=== PATIENT | female | born 1960 | race Caucasian/White ===

== ENCOUNTER 2017-10-23 17:07 | Inpatient (IN) | payer OTHER ==
[2017-10-23] MEDS ORDERED: ASPIRIN 81 MG CHEWABLE TAB PO ONE (17:16)
[2017-10-23] MEDS ORDERED: NS 1,000 ML IV ONE (17:16)
--- NOTE | 2017-10-23 17:16 | EDPHY ---
H & P Stated Complaint: cp with exeercise 2 weeks saw pcp ekg/labs trop 0.035 HPI/ROS: HPI CHIEF COMPLAINT: Chest pain with exertion HISTORY OF PRESENT ILLNESS: This patient 57-year-old female, otherwise healthy she does have a history of asthma, hyperlipidemia, she presents emergency room with exertional chest pain. Patient states over the past 2-3 weeks every time she goes to exert herself she develops chest discomfort. Patient reports to me every time she exerts herself she gets a dull ache in the center of her chest nonradiating. She denies any pleuritic pain, denies recent illness, denies cough, denies fever, denies hemoptysis. Patient has no chest pain at rest. She reports takes approximately 10 min for the chest discomfort to go away after she exerts herself. Rest. Past Medical History: Hyperlipidemia, asthma Past Surgical History: Left knee surgery Social History: He denies drugs alcohol tobacco products. Family History: Noncontributory. ROS REVIEW OF SYSTEMS: A comprehensive 10 point review of systems is otherwise negative aside from elements mentioned in the history of present illness. Exam Constitutional appears well nontoxic no acute distress triage nursing summary reviewed, vital signs reviewed, awake/alert. Eyes normal conjunctivae and sclera, EOMI, PERRLA. HENT normal inspection, atraumatic, moist mucus membranes, no epistaxis, neck supple/ no meningismus, no raccoon eyes. Respiratory clear to auscultation bilaterally, normal breath sounds, no respiratory distress, no wheezing. Cardiovascular rate normal, regular rhythm, no murmur, no edema, distal pulses normal. Gastrointestinal soft, non-tender, no rebound, no guarding, normal bowel sounds, no distension, no pulsatile mass. Genitourinary no CVA tenderness. Musculoskeletal no midline vertebral tenderness, full range of motion, no calf swelling, no tenderness of extremities, no meningismus, good pulses, neurovascularly intact. Skin pink, warm, & dry, no rash, skin atraumatic. Neurologic awake, alert and oriented x 3, AAOx3, moves all 4 extremities equally, motor intact, sensory intact, CN II-XII intact, normal cerebellar, normal vision, normal speech. Psychiatric normal mood/affect. Heme/Lymph/Immune no lymphadenopathy. Differential diagnosis includes but is not limited to: ACS, atypical chest pain , pneumothorax, pneumonia, pulmonary embolism, aortic dissection, congestive heart failure, tumor, musculoskeletal pain, esophageal pain, GERD, peptic ulcer disease, pancreatitis Medical Decision Making: Plan for this patient IV establishment check basic blood work, EKG to rule out acute coronary syndrome, full-dose aspirin, full monitoring manager, and re-evaluate. Re-evaluation: EKG interpretation by me on record in [employer] system. Impression time of EKG 1726, sinus rhythm rate of 70, RVH present. Right bundle-branch block present. No ST elevation. No significant ST depression. 183: Patient has a positive troponin. At this time she has no chest pain. No chest pain at rest. Only gets chest discomfort when she exerts herself. Patient receive full-dose aspirin here. Additionally I have given the patient 1 milligram/kilogram of Lovenox. Additionally her EKG is not acutely ischemic. Patient does have a positive troponin. She will be admitted to the hospital. I will admit the patient to the hospitalist service. Additionally I will consult Cardiology. Source: Patient - Personal History Current Tetanus/Diphtheria Vaccine: Yes - Medical/Surgical History Hx Asthma: Yes Hx Chronic Respiratory Disease: No Hx Diabetes: No Hx Cardiac Disease: No Hx Renal Disease: No Hx Cirrhosis: No Hx Alcoholism: No Hx HIV/AIDS: No Hx Splenectomy or Spleen Trauma: No Other PMH: asthma knee surg - Social History Smoking Status: Never smoked Constitutional: Initial Vital Signs Temperature (C) 36.8 C 10/23/17 17:10 Heart Rate 81 10/23/17 17:10 Respiratory Rate 18 10/23/17 17:10 Blood Pressure 160/111 H 10/23/17 17:10 O2 Sat (%) 96 10/23/17 17:10 O2 Delivery Mode Room Air O2 (L/minute) 4 Allergies/Adverse Reactions: No Known Allergies Allergy (Unverified 10/23/17 17:09) Home Medications: Medication Instructions Recorded Budesonide/Formoterol 160/4.5 2 puffs IH DAILY 10/23/17 [Symbicort 160-4.5 Mcg Inh (*)] Calcium Carb W/Vit D [Calcium Carb 500 mg PO DAILY 10/23/17 W/Vit D 500/200 (*)] Estradiol 0.5 mg PO DAILY 10/23/17 Glucosamine Sulfate [Glucosamine 500 mg PO DAILY 10/23/17 Sulfate 500 MG (*)] Herbals/Supplements -Info Only 1 ea PO DAILY 10/23/17 Progesterone, Micronized 100 mg PO DAILY 10/23/17 [Progesterone] Aspirin EC [Aspirin EC 325 mg (*)] 325 mg PO DAILY #30 tab 10/25/17 Atorvastatin Calcium [Lipitor 40 40 mg PO DAILY #30 tab 10/25/17 mg (*)] Metoprolol Succinate Xr [Toprol Xl 25 mg PO DAILY #30 tab 10/25/17 25 mg (*)] Prasugrel HCl [Effient 10mg (*)] 10 mg PO DAILY #30 tab 10/25/17 Medical Decision Making - Data Points Laboratory Results: Laboratory Results 10/24/17 03:36 10/24/17 03:36 Medications Given: Discontinued Medications Hydrocodone Bitart/Acetaminophen ([place] 5/325) 1 - 2 tab PO Q4HRS PRN PRN Reason: Pain, Moderate Stop: 11/03/17 12:53 Last Admin: 10/24/17 14:07 Dose: 1 tab Aspirin (Aspirin) 324 mg PO EDNOW ONE Stop: 10/23/17 17:17 Last Admin: 10/23/17 17:30 Dose: 324 mg Aspirin Buffered (Aspirin Ec) 325 mg PO DAILY [facility] Stop: 04/23/18 08:59 Last Admin: 10/25/17 08:59 Dose: 325 mg Atorvastatin Calcium (Lipitor) 40 mg PO DAILY [facility] Stop: 04/22/18 18:29 Last Admin: 10/25/17 08:58 Dose: 40 mg Budesonide/Formoterol Fumarate (Symbicort 160-4.5 Mcg Inhaler) 2 puffs IH DAILY [facility] Stop: 04/22/18 08:59 Last Admin: 10/25/17 08:47 Dose: 2 puffs Calcium/Vitamin D (Calcium Carb W/Vit D) 500 mg PO DAILY [facility] Stop: 04/22/18 08:59 Last Admin: 10/25/17 08:59 Dose: 500 mg Diazepam (Valium) 5 mg PO ONCALL ONE Stop: 10/24/17 08:56 Last Admin: 10/24/17 10:28 Dose: 5 mg Diphenhydramine HCl (Benadryl) 25 mg PO ONCALL ONE Stop: 10/24/17 08:56 Last Admin: 10/24/17 10:27 Dose: 25 mg Enoxaparin Sodium (Lovenox) 70 mg SC EDNOW ONE Stop: 10/23/17 19:16 Last Admin: 10/23/17 19:17 Dose: 70 mg Estradiol (Estradiol) 0.5 mg PO DAILY TARI Stop: 04/22/18 08:59 Last Admin: 10/25/17 08:59 Dose: 0.5 mg Famotidine (Pepcid) 20 mg PO ONCALL ONE Stop: 10/24/17 08:56 Last Admin: 10/24/17 10:28 Dose: 20 mg Glucosamine Sulfate (Glucosamine Sulfate) 500 mg PO DAILY TARI Stop: 04/22/18 08:59 Last Admin: 10/25/17 08:59 Dose: 500 mg Sodium Chloride (Ns) 1,000 mls @ 0 mls/hr IV EDNOW ONE; Wide Open PRN Reason: Protocol Stop: 10/23/17 17:17 Last Admin: 10/23/17 17:30 Dose: 1,000 mls Sodium Chloride (Ns) 1,000 mls @ 50 mls/hr IV CONT TARI Stop: 04/21/18 19:44 Last Admin: 10/24/17 02:01 Dose: 1,000 mls Sodium Chloride (Ns) 1,000 mls @ 100 mls/hr IV CONT TAIR Stop: 10/24/17 22:59 Last Admin: 10/24/17 14:50 Dose: 1,000 mls Metoprolol Succinate (Toprol Xl) 25 mg PO DAILY [facility] Stop: 04/23/18 08:59 Last Admin: 10/25/17 09:40 Dose: 25 mg Ondansetron HCl (Zofran) 4 mg IVP Q4HRS PRN PRN Reason: Nausea/Vomiting, Can't Take PO Stop: 04/21/18 19:43 Last Admin: 10/24/17 22:51 Dose: 4 mg Prasugrel (Effient) 10 mg PO DAILY [facility] Stop: 04/23/18 08:59 Last Admin: 10/25/17 08:59 Dose: 10 mg Prasugrel (Effient) 60 mg PO ONCE ONE Stop: 10/24/17 12:55 Last Admin: 10/24/17 14:30 Dose: Not Given Pravastatin Sodium (Pravachol) 40 mg PO DAILY [facility] Stop: 04/22/18 08:59 Last Admin: 10/24/17 21:20 Dose: Not Given Progesterone (Prometrium) 100 mg PO DAILY TARI Stop: 04/22/18 08:59 Last Admin: 10/25/17 08:58 Dose: 100 mg Promethazine HCl (Phenergan) 25 mg IV ONCE ONE Stop: 10/24/17 14:46 Last Admin: 10/24/17 14:50 Dose: 25 mg Zolpidem Tartrate (Ambien) 5 - 10 mg PO HS PRN PRN Reason: Sleep/Insomnia, use 1st Stop: 04/21/18 19:43 Last Admin: 10/24/17 02:41 Dose: 5 mg Departure - Departure Disposition: [facility] Acute Clinical Impression: Elevated troponin Chest pain Qualifiers: Chest pain type: unspecified Qualified Code(s): R07.9 - Chest pain, unspecified Condition: Good
--- NOTE | 2017-10-23 17:28 | CPEKG ---
Heart Rate: 70 RR Interval: 857 P-R Interval: 152 QRSD Interval: 104 QT Interval: 412 QTC Interval: 445 P [place]: 66 QRS [place]: 101 T Wave [place]: 34 EKG Severity - BORDERLINE ECG - EKG Impression: SINUS RHYTHM EKG Impression: CONSIDER RIGHT VENTRICULAR HYPERTROPHY Electronically Signed By: Kenneth Estrada 23-Oct-2017 22:47:12
[2017-10-23 17:42] LABS: PLATELET COUNT 215 10^3/uL (150-400)
[2017-10-23 17:53] LABS: INR 1.02 (0.83-1.16); PROTIME(PATIENT) 13.6 SEC (12.0-15.0)
[2017-10-23 17:56] LABS: CREATINE KINASE 198 IU/L (0-156)
[2017-10-23] MEDS ORDERED: ENOXAPARIN 60 MG/0.6 ML SYR SC ONE ×2 (18:14→19:15)
[2017-10-23] MEDS ORDERED: ENOXAPARIN 80 MG/0.8 ML SYR SC ONE (19:15)
[2017-10-23] MEDS ORDERED: ACETAMINOPHEN 325 MG TAB PO PRN (19:44)
[2017-10-23] MEDS ORDERED: ONDANSETRON DISINTEGRATING 4 MG TAB PO PRN (19:44)
[2017-10-23] MEDS ORDERED: ZOLPIDEM TARTRATE 5 MG TAB PO PRN (19:44)
[2017-10-23] MEDS ORDERED: NS 1,000 ML IV SCH (19:45)
--- NOTE | 2017-10-23 23:39 | PDGENHP ---
History and Physical History and Physical: CC: Chest pain with exertion HISTORY: This patient presents to the emergency room today complaining of 2 weeks of new onset and increasing exertion related symptoms consisting of a pressure or weight sensation in the central anterior chest associated with dyspnea. Typical symptoms to bring this on my include walking her dog on a slight a pill, trying to get out of the house quickly in the morning to go to work, or exercising at modest level on an elliptical technology trainer. Today she had stopped 10 times while trying to walk her dog because of these anginal symptoms. The anginal symptoms will go away within 5-10 minutes of stopping to rest. There has been no palpitations and no syncope. She has no history of any symptoms like this in the past. There is no nausea. She has no previous history of heart disease thromboembolic disease vascular disease, does have a history of asthma but that is currently well controlled on Symbicort. She does have a history of hyperlipidemia with the last LDL measured at 150 and her father had myocardial infarction in his young 60s. She is not a smoker and not diabetic. 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 I have reviewed the list and ordered appropriate medicines. 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 IV site: looks normal LABORATORY DATA: She has 2 troponins so far today, 1 done during her hospital stay and 1 done in the outpatient clinic setting, and he is are both mildly elevated at 0.05 and 0.04 There is a mild elevation of anion gap within normal CO2 level on the chemistry RADIOLOGY STUDIES: Reviewed chest x-ray image myself which shows a normal chest x-ray 12 LEAD EKG: I reviewed her 12 lead EKG tracing which shows a sinus rhythm with borderline nonspecific interventricular conduction delay ASSESSMENT: -new onset unstable angina pectoralis in a patient with risk factors of hypercholesterolemia and family history of premature coronary disease -mildly elevated cardiac troponins raise suspicion further that this is a coronary syndrome -no signs of heart failure or arrhythmia at this time -question of possible metabolic acidosis with a mild elevation of anion gap but normal CO2 level on chemistry This is very highly likely be a coronary syndrome without other specific evidence for any different cause at this time PLANS: -observe over overnight on dental biller -she has been given aspirin and Lovenox tonight in the ER -will add some metoprolol now -continue daily aspirin -she is aware that I want her to notify us of any recurrent rest angina or dyspnea or other concerning symptoms -believe that coronary angiography is indicated here. Cardiology will see her in the morning and render their opinion will proceed from there -chronic aggressive preventive measures for coronary disease given her risk factors -echocardiogram to assess LV function -gentle hydration overnight and recheck chemistry for her anion gap I have reviewed the patient's case in detail with Dr. Kenneth Estrada I have reviewed the patient's past medical records as part of this assessment, including previous outpatient laboratory data and clinic records
[2017-10-24 04:37] LABS: INR 1.09 (0.83-1.16); PROTIME(PATIENT) 14.3 SEC (12.0-15.0)
[2017-10-24 04:54] LABS: PLATELET COUNT 176 10^3/uL (150-400)
[2017-10-24 04:56] LABS: CREATINE KINASE 147 IU/L (0-156)
--- NOTE | 2017-10-24 07:58 | CPEKG ---
Heart Rate: 76 RR Interval: 789 P-R Interval: 168 QRSD Interval: 132 QT Interval: 432 QTC Interval: 486 P [place]: 73 QRS [place]: 82 T Wave [place]: 58 EKG Severity - ABNORMAL ECG - EKG Impression: SINUS RHYTHM EKG Impression: RBBB AND LPFB Electronically Signed By: Junito Vasquez 25-Oct-2017 10:23:25
[2017-10-24] MEDS ORDERED: diphenhydrAMINE 25 MG CAP PO ONE (08:55)
[2017-10-24] MEDS ORDERED: TEMAZEPAM 15 MG CAP PO PRN (08:55)
[2017-10-24] MEDS ORDERED: DIAZEPAM 5 MG TAB PO ONE (08:55)
[2017-10-24] MEDS ORDERED: NITROGLYCERIN 0.4 MG BTL SL PRN (08:55)
[2017-10-24] MEDS ORDERED: FAMOTIDINE 20 MG TAB PO ONE (08:55)
[2017-10-24] MEDS ORDERED: ACETAMINOPHEN 325 MG TAB PO PRN (08:55)
[2017-10-24] MEDS ORDERED: PRAVASTATIN SODIUM 40 MG TAB PO SCH (09:00)
[2017-10-24] MEDS: BUDESONIDE/FORMOTEROL 160/4.5 60 PUFFS/MDI IH SCH (09:23)
--- NOTE | 2017-10-24 10:07 | PDCARCONS ---
Cardiology Consult Reason for Consult: New onset exertional angina. Chief Complaint: Exertional chest discomfort. Requesting Physician: Dr. Jason Huffman. History of Present Illness: Mrs. Tatum is a pleasant 57-year-old female who, at her baseline, is very active and has no known cardiovascular disease. Her cardiac risk factors include hyperlipidemia with an LDL cholesterol previously measured to be in the 150 range. There is a family history of cardiovascular disease however there is no family history of premature atherosclerosis. She and her live up in the [facility] area. Shortly after [place] she decided to take up an exercise program. She has been trying to use an elliptical field trainer regularly. She also likes to take her for a small dog for a walk which she usually does on a daily basis. For the 1st 2 weeks of this program she has done well however for the last 1 week she has felt poorly. She states that she has been experiencing symptoms of exertional chest discomfort described as a pressure sensation in the retrosternal region with physical activities. She specifically notes that these symptoms when she takes her dog for a walk. Generally within about 5 minutes of beginning to walk she will experience chest pressure. This is associated with dyspnea and requires that she stop and rest. Usually within 2-3 minutes her symptoms resolved. On a typical 30 minutes walk she will need to stop about 10 times to catch her breath and to alleviate the chest discomfort. She has not had any resting symptoms. She notes no orthopnea or PND and she has not had any significant edema. Because of these symptoms she went to see Dr. Rodriguez yesterday. She actually saw the nurse practitioner. She had an EKG which apparently was noted to be unremarkable. The patient was sent for blood work and apparently her troponin returned slightly elevated. As result she was advised to come to the emergency department. She has been admitted and has been stable since. She has been on heparin overnight and in sinus rhythm. She denies fever, chills and sweats. As stated above she has not had any resting symptoms. She notes no dyspepsia. She does have a history of reactive airway disease although has not been wheezy recently. She was hospitalized in late 2016 with a reactive airway disease exacerbation. History Information - Allergies/Home Medication List Allergies/Adverse Reactions: No Known Allergies Allergy (Unverified 10/23/17 17:09) Home Medications: Budesonide/Formoterol 160/4.5 [Symbicort 160-4.5 Mcg Inh (*)] 2 puffs IH DAILY 10/23/17 [Last Taken 10/23/17] Calcium Carb W/Vit D [Calcium Carb W/Vit D 500/200 (*)] 500 mg PO DAILY [Last Taken 10/23/17] Estradiol [Estradiol 0.5 MG (RX)] 0.5 mg PO DAILY 10/23/17 [Last Taken 10/23/17] Glucosamine Sulfate [Glucosamine Sulfate 500 MG (*)] 500 mg PO DAILY 10/23/17 [ Last Taken 10/23/17] Herbals/Supplements -Info Only 1 ea PO DAILY 10/23/17 [Last Taken 10/23/17] Pravastatin Sodium [Pravachol] 40 mg PO DAILY 10/23/17 [Last Taken 10/23/17] Progesterone, Micronized [Progesterone] 100 mg PO DAILY 10/23/17 [Last Taken ] I have personally reviewed and updated: family history, medical history, social history, surgical history Past Medical History: Reactive airway disease, hyperlipidemia, postmenopausal. - Surgical History Additional surgical history: Right knee arthroscopy June 2016 - Family History Additional family history: There is no family history for premature atherosclerosis. - Social History Smoking Status: Never smoked Alcohol Use: Rarely Drug Use: None Additional social history: She is . 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 She has always been healthy. She has 3 grown children. Physical Exam Physical Exam: Temp Pulse Resp BP Pulse Ox 36.8 C 70 12 126/65 H 95 10/24/17 07:17 10/24/17 07:17 10/24/17 07:17 10/24/17 07:17 10/24/17 07:17 O2 (L/minute) 2 Constitutional: no apparent distress Eyes: PERRL, anicteric sclera Ears, Nose, Mouth, Throat: moist mucous membranes Cardiovascular: regular rate and rhythym, no murmur, rub, or gallop, No systolic murmur, No diastolic murmur, No JVD Peripheral Pulses: 2+: carotid (R), carotid (L) Respiratory: no respiratory distress, no rales or rhonchi, clear to auscultation , No reduced air movement Gastrointestinal: normoactive bowel sounds, soft, non-tender abdomen, No no palpable masses Genitourinary: No no bladder fullness, No no bladder tenderness, No no renal bruits Skin: warm, normal color Musculoskeletal: full muscle strength, no muscle tenderness Neurologic: AAOx3 Psychiatric: interacting appropriately Lab and Imaging 10/24/17 03:36 10/24/17 03:36 WBC 5.96 10^3/uL (3.80-9.50) 10/24/17 03:36 RBC 4.16 10^6/uL (4.18-5.33) L 10/24/17 03:36 Hgb 12.3 g/dL (12.6-16.3) L 10/24/17 03:36 Hct 37.8 % (38.0-47.0) L 10/24/17 03:36 MCV 90.9 fL (81.5-99.8) 10/24/17 03:36 MCH 29.6 pg (27.9-34.1) 10/24/17 03:36 MCHC 32.5 g/dL (32.4-36.7) 10/24/17 03:36 RDW 12.7 % (11.5-15.2) 10/24/17 03:36 Plt Count 176 10^3/uL (150-400) 10/24/17 03:36 MPV 10.5 fL (8.7-11.7) 10/24/17 03:36 Neut % (Auto) 46.9 % (39.3-74.2) 10/24/17 03:36 Lymph % (Auto) 39.8 % (15.0-45.0) 10/24/17 03:36 [place] % (Auto) 8.9 % (4.5-13.0) 10/24/17 03:36 Eos % (Auto) 3.4 % (0.6-7.6) 10/24/17 03:36 Baso % (Auto) 0.8 % (0.3-1.7) 10/24/17 03:36 Nucleat RBC Rel Count 0.0 % (0.0-0.2) 10/24/17 03:36 Absolute Neuts (auto) 2.80 10^3/uL (1.70-6.50) 10/24/17 03:36 Absolute Lymphs (auto) 2.37 10^3/uL (1.00-3.00) 10/24/17 03:36 Absolute Monos (auto) 0.53 10^3/uL (0.30-0.80) 10/24/17 03:36 Absolute Eos (auto) 0.20 10^3/uL (0.03-0.40) 10/24/17 03:36 Absolute Basos (auto) 0.05 10^3/uL (0.02-0.10) 10/24/17 03:36 Absolute Nucleated RBC 0.00 10^3/uL (0-0.01) 10/24/17 03:36 Immature Gran % 0.2 % (0.0-1.1) 10/24/17 03:36 Immature Gran # 0.01 10^3/uL (0.00-0.10) 10/24/17 03:36 PT 14.3 SEC (12.0-15.0) 10/24/17 03:36 INR 1.09 (0.83-1.16) 10/24/17 03:36 APTT 29.8 SEC (23.0-38.0) 10/23/17 17:35 Sodium 143 mEq/L (135-145) 10/24/17 03:36 Potassium 4.3 mEq/L (3.5-5.2) 10/24/17 03:36 Chloride 111 mEq/L (97-110) H 10/24/17 03:36 Carbon Dioxide 21 mEq/l (22-31) L 10/24/17 03:36 Anion Gap 11 mEq/L (8-16) 10/24/17 03:36 BUN 20 mg/dL (7-23) 10/24/17 03:36 Creatinine 0.7 mg/dL (0.6-1.0) 10/24/17 03:36 Estimated GFR > 60 10/24/17 03:36 Glucose 87 mg/dL (70-100) 10/24/17 03:36 Calcium 8.6 mg/dL (8.5-10.4) 10/24/17 03:36 Magnesium 2.1 mg/dL (1.6-2.3) 10/23/17 17:35 Total Bilirubin 0.6 mg/dL (0.1-1.4) 10/23/17 17:35 Conjugated Bilirubin 0.3 mg/dL (0.0-0.5) 10/23/17 17:35 Unconjugated Bilirubin 0.3 mg/dL (0.0-1.1) 10/23/17 17:35 AST 24 IU/L (14-46) 10/23/17 17:35 ALT 37 IU/L (9-52) 10/23/17 17:35 Alkaline Phosphatase 93 IU/L (38-126) 10/23/17 17:35 Creatine Kinase 147 IU/L (0-156) 10/24/17 03:36 CK-MB (CK-2) Fraction 2.45 ng/mL (0.00-3.19) 10/23/17 17:35 CK-MB (CK-2) % 1.2 % (0.0-4.0) 10/23/17 17:35 Creatine Kinase Interp NEGATIVE (NEGATIVE) 10/23/17 17:35 Troponin I 0.042 ng/mL (0.000-0.034) H 10/24/17 03:36 NT-Pro-B Natriuret Pep 133 pg/mL (0-125) H 10/24/17 03:36 Total Protein 8.0 g/dL (6.3-8.2) 10/23/17 17:35 Albumin 4.9 g/dL (3.5-5.0) 10/23/17 17:35 Lipase 167 IU/L (23-300) 10/23/17 17:35 Visualized and Interpreted Chest x-ray results: Yes Chest X-ray Interpretation: no infiltrate, normal Visualized and Interpreted EKG results: Yes EKG additional interpertation: Normal sinus rhythm. Right bundle branch block. Left posterior fascicular block. Telemetry: Normal sinus rhythm. Echocardiogram: Bedside echocardiogram was performed. This indicated normal wall motion. No significant valvular disease. Normal right-sided chamber dimensions. A/P Assessment: 57-year-old female with a cardiac risk factor profile that includes hyperlipidemia. She has a past medical history significant for reactive airway disease. She is admitted now with new onset exertional angina. She is currently [place] Cardiovascular Society Class 3. She has mildly elevated cardiac enzymes with an unremarkable EKG. At this point, the differential diagnosis most likely points to an acute coronary syndrome as the underlying cause of her complaints. Other possibilities include worsening of her underlying reactive airway disease however she is not bronchospastic on exam. Chronic PE with resultant pulmonary hypertension is on the differential however her echocardiogram demonstrates normal right-sided chamber dimensions. There is also no indication of underlying valvular heart disease. Plan: After review of her echocardiogram, it was decided to proceed with coronary angiography. The risks, benefits and alternatives were discussed with her. She agrees to proceed. Further recommendations will be made pending the outcome of that study.
[2017-10-24] MEDS ORDERED: LIDOCAINE 1% 300 MG/30 ML SDV ONE (10:11)
[2017-10-24] MEDS ORDERED: fentaNYL 100 MCG/2 ML INJ ONE ×2 (10:11→11:40)
[2017-10-24] MEDS ORDERED: MIDAZOLAM 2 MG/2 ML VIAL ONE ×4 (10:12→11:52)
[2017-10-24] MEDS ORDERED: VERAPAMIL 5 MG/2 ML VIAL ONE (10:12)
[2017-10-24] MEDS ORDERED: IOPAMIDOL (ISOVUE-370) 150 ML BTL IV ONE ×3 (10:12→12:29)
[2017-10-24] MEDS ORDERED: HEPARIN 10,000 UNIT/10 ML MDV (1,000 UNIT/ML) ONE (10:12)
[2017-10-24] MEDS ORDERED: ONDANSETRON 4 MG/2 ML VIAL ONE ×2 (10:38→13:26)
--- NOTE | 2017-10-24 10:45 | PDPROPOC ---
Sedation Plan of Care Sedation Plan of Care: vital signs stable, mental status noted, patient educated of risks, benefits, alternatives, patient can tolerate sedation ASA Classification: ASA 1 Planned drugs: fentanyl, midazolam Mallampati Score: Class 1 Mallampati Reference Image: Patient passed 3-3-2 rule?: Yes
--- NOTE | 2017-10-24 10:46 | PDHPUP ---
History & Physical Update H&P update statement: This history and physical update is based on an assessment of the patient which was completed after admission or registration (within 24 hours), but prior to the surgery/procedure. H&P update: H&P reviewed & patient examined, no change in patient's condition since H&P completed (No changes. Plan for [facility] given new onset [place].)
--- NOTE | 2017-10-24 10:46 | ECHO ---
[email or web address] [address] [address] Main: [phone] Fax: Transthoracic Echocardiogram Name: ALVARO DONG MR#: [id number] Study Date: 10/24/2017 Study Time: 09:29 AM Date of : 1960 Age: 57 year(s) Height: 162.6 cm (64 in.) Weight: 69.85 kg (154 lb.) BSA: 1.75 m2 Gender: Female Examination: Echo Indication: Unstable Angina, Pre Cath Image Quality: Contrast: Requested by: Jason Huffman BP: 126 mmHg/65 mmHg Heart Rate: Rhythm: Normal sinus rhythm Indication: Unstable Angina, Pre Cath Procedure Staff Community Program Assistant: Fer Bowden Reading Physician: Rei Mendoza Requesting Provider: Conclusions: Normal size left ventricle. Normal global systolic LV function. EF is 68 %. No regional wall motion abnormality. Diastolic dysfunction is present. . Normal valvular structure and function. Measurements: Chambers Valvular Assessment AV/MV Valvular Assessment TV/PV Normal Normal Normal Name Value Range Name Value Range Name Value Range Ao Hoa (MM): 3.1 cm (2.2 cm-3.7 AV Vmax: 1.57 m/s (1 m/s-1.7 TR Vmax: 2.50 mm/s ( - ) cm) m/s) TR PGmax: 25 mmHg ( - ) IVSd (2D): 0.8 cm (0.6 cm-1.1 AV maxP mmHg ( - ) syst. PAP: 35 mmHg ( - ) cm) LVOT Vmax: 1.16 m/s (0.7 m/s-1.1 PV Vmax: 0.90 m/s (0.6 m/s-0.9 LVDd (2D): 4.3 cm (3.9 cm-5.3 m/s) m/s) cm) MV E Vmax: 0.94 m/s ( - ) PV PGmax: 3 mmHg ( - ) LVDs (2D): 2.7 cm (2.1 cm-4 MV A Vmax: 0.73 m/s ( - ) cm) MV E/A: 1.29 ( - ) LVPWd (2D): 0.9 cm ( - ) LVEF (2D): 68 (>=54 %) Continued Measurements: Chambers Valvular Assessment AV/MV Valvular Assessment TV/PV Name Value Name Value Name Value LADs Lon.7 cm MV E' Septal: 0.06 m/s CVP (est.): 10 mmHg LA Area: 10.0 cm2 MV E/E' Septal: 16.30 LA Volume: 26 ml MV E/E' Lateral: 9.50 LA Volume Index: 14.9 ml/m2 Patient: ALVARO DONG Study Date: 10/24/2017 Page 1 of 2 09:29 AM Findings: Left Ventricle: Normal size left ventricle. No LV hypertrophy. Normal global systolic LV function. EF is 68 %. No regional wall motion abnormality. Diastolic dysfunction is present. . Right Ventricle: Normal size right ventricle. Left Atrium: The left atrium is normal in size. Right Atrium: The right atrium is normal in size. Mitral Valve: The mitral valve is normal in appearance and function. Aortic Valve: The aortic valve is tri-leaflet and functions normally. Tricuspid Valve: The tricuspid valve is normal in appearance and function. Pulmonic Valve: The pulmonic valve is normal in appearance and function. Aorta: The aorta is normal. Pericardium: No pericardial effusion. (No Signature Object) Patient: ALVARO DONG Study Date: 10/24/2017 Page 2 of 2 09:29 AM [id number]
--- NOTE | 2017-10-24 11:42 | PDDXCAT ---
Diagnostic Cath Note - . Date: 10/24/17 Civil Rights Representative: Kelly Indication: other ([place]) - Procedure Access: right wrist Procedure: left heart catheterization, coronary angiography, left ventriculogram - Materials Left Heart Cath size: 5F Left Heart Cath materials: JL3.5, JR4.0 - Findings-Left Heart Catheterization LM: Short, essentially cloacal vessel with bifurcation into the LAD and circumflex. LAD: Large caliber transapical vessel. There is a high-grade (90%) lesion noted in the proximal vessel at and involving the origin of the principal diagonal branch. LCX: Large caliber vessel. Om 1 and om 2 are small. There is a large bifurcating 3rd obtuse marginal branch. Minimal luminal irregularities with no obstructive lesions are noted. RCA: Moderate caliber dominant vessel. Diffuse nonobstructive disease. LVEF: 70%. Normal wall motion. No significant mitral regurgitation. Complications: None. Estimated blood loss: <50ml Assessment: High-grade proximal LAD lesion at and involving the origin of the 1st diagonal branch. New onset [place] [employer] Class 3 angina. Normal ejection fraction. Plan: Patient will be referred to Dr. Brennan Gipson for percutaneous intervention of the left anterior descending. Patient Problems: Problems Problem Status Onset Chest pain Acute Elevated troponin Acute
[2017-10-24] MEDS ORDERED: ASPIRIN 325 MG TAB ONE (12:34)
[2017-10-24] MEDS ORDERED: PRASUGREL HCL 10 MG TAB ONE (12:35)
[2017-10-24] MEDS ORDERED: HYDROCODONE/APAP 5/325 TAB PO PRN (12:54)
[2017-10-24] MEDS ORDERED: PRASUGREL HCL 10 MG TAB PO ONE (12:54)
[2017-10-24] MEDS ORDERED: ATROPINE SULFATE 1 MG/10 ML SYR IVP PRN (12:54)
[2017-10-24] MEDS ORDERED: NS 1,000 ML IV SCH (13:00)
--- NOTE | 2017-10-24 13:04 | PDDXCAT ---
Diagnostic Cath Note - . Date: 10/24/17 Certified Art Therapist: Brandan (CAD with new presentation of unstable angina.) - Procedure Access: right groin Procedure: other (Percutaneous coronary intervention of the LAD and first diagonal branch.) Estimated blood loss: <50ml Closure method: Angioseal Assessment: Succesful PCI of the LAD-diagonal bifurcation with placement of a single drug coated stent in the LAD and balloon angioplast of the diagonal branch. Intervention: Please refer to the diagnostic cardiac catheterization report by Dr. Blue Mendoza. Briefly, Ms. Tatum is a 57-year-old woman who presented with a new history of classic exertional angina at low levels activity. Her troponin was mildly elevated. Diagnostic cardiac catheterization demonstrated preserved left ventricular systolic function, noncritical disease of the circumflex and RCA, and a high grade bifurcation stenosis involving the left anterior descending and the ostium of the first branch. Based on the patient's clinical history and diagnostic angiography, the decision was made to perform percutaneous coronary intervention. The patient received 2500 units of units of IV heparin in addition to the 4000 units of heparin that had beedn given at the beginning of the procedure. A 6 Danish CLS 3.0 guide catheter was advanced to the left main. An Intuition wire was advanced to the apical portion of the left anterior descending. It was extremely difficult to introduce a guidewire into the diagonal branch because of the acute angle of the origin combined with a high grade ostial stenosis. During attempts to place a guidewire in the diagonal, the patient began to experience angina and developed AMY 2 flow in the left anterior descending. Therefore, the LAD was predilated with a 2.5 x 12 mm emerge balloon. Attempts were once again undertaken to place a guidewire into the diagonal branch. Finally, a Room Cooler Installer 50 guidewire was successfully negotiated into the diagonal branch. The ostium was dilated with a 2.0 x 8 mm Emerge balloon. The balloon and guidewire were withdrawn from the diagonal branch. A 3.0 x 20 mm Synergy stem was then advanced into position in the left anterior descending and was deployed at high pressure. Subsequent angiograms demonstrated 0% residual stenosis in the left anterior descending and less than 20% residual stenosis at the ostium of the diagonal branch. A Kinetix guidewire was successfully negotiated into the diagonal branch. However, attempts to advance a balloon for dilation of the diagonal ostium through "stent correction" were unsuccessful. The balloon would not even enter the proximal portion of the stented segment suggesting that the Kinetix wire had tracked beneath the stent. Given a good angiographic result that had been obtained, the procedure was terminated. Patient Problems: Problems Problem Status Onset Chest pain Acute Elevated troponin Acute
[2017-10-24] MEDS: ONDANSETRON 4 MG/2 ML VIAL IVP PRN ×2 (13:28→22:51)
--- NOTE | 2017-10-24 13:56 | CPEKG ---
Heart Rate: 79 RR Interval: 759 P-R Interval: 180 QRSD Interval: 134 QT Interval: 432 QTC Interval: 496 P [place]coe: 74 QRS [place]: 79 T Wave [place]: 41 EKG Severity - ABNORMAL ECG - EKG Impression: SINUS RHYTHM EKG Impression: PROBABLE LEFT ATRIAL ABNORMALITY EKG Impression: RIGHT BUNDLE BRANCH BLOCK Electronically Signed By: Junito Vasquez 25-Oct-2017 10:23:34
[2017-10-24] MEDS ORDERED: HYDROCODONE/APAP 5/325 TAB ONE (14:05)
--- NOTE | 2017-10-24 14:14 | ASMTCMCOM ---
CM Note CM Note Notes: 10/24/2017 Case Management Note Reviewed chart, spoke w/RN. There are no case management d/c needs identified d/t pt age, marital status, activity levels prior to admission and employment status. There are no PT or OT evals ordered. There is a consult for cardiac rehab. Case Management d/c poc: anticipating independent with follow up as directed. Case Management available if needs change. Date Signed: 10/24/2017 02:14 PM Electronically Signed By:Renetta Hess RN
[2017-10-24] MEDS ORDERED: PROMETHAZINE HCL 25 MG/ML INJ ONE (14:41)
[2017-10-24] MEDS ORDERED: PROMETHAZINE HCL 25 MG/ML INJ IV ONE (14:45)
[2017-10-24 16:58] VITALS: RESP 16
--- NOTE | 2017-10-24 18:20 | HOSPPROG ---
Hospitalist Progress Note Assessment/Plan: #. Angina - CAD noted on cath with LAD stent placement. Currently asymptomatic and resting comfortably. Continue medical management per cardiology recommendations. #. HDL - LDL 130. Will need to adjust aggressiveness of statin therapy. #. Asthma - stable on exam. #. DVT prophylaxis - on therapeutic lovenox. #. Dipso - likely home when ready. Subjective: F/U angina. Patient underwent cardiac cath today with subsequent LAD stent. Seen after cath and resting comfortably. Daughter at bedside updated. Objective: Vital Signs Temp Pulse Resp BP Pulse Ox 36.4 C 93 16 129/80 H 98 10/24/17 15:00 10/24/17 15:00 10/24/17 15:00 10/24/17 17:00 10/24/17 15:00 Laboratory Results 10/24/17 03:36 10/24/17 03:36 10/23/17 10/24/17 10/25/17 05:59 05:59 05:59 Intake Total 200 650 Output Total 0 Balance 200 650 PT 14.3 SEC (12.0-15.0) 10/24/17 03:36 INR 1.09 (0.83-1.16) 10/24/17 03:36 - Physical Exam Constitutional: no apparent distress Cardiovascular: regular rate and rhythym, no murmur, rub, or gallop Respiratory: no respiratory distress, clear to auscultation Gastrointestinal: No distension Genitourinary: No baker in urethra ICD10 Worksheet Patient Problems: Problems Problem Status Onset Chest pain Acute Elevated troponin Acute
--- NOTE | 2017-10-24 18:58 | PDMN ---
Medical Necessity Medical necessity: C/M review: Acute and persistently worsening unstable mangina requiring 10/24/2017 cardiac cath - LHC and PCI with stent to proximal LAD requiring ongoing cardiac monitoring, IV fluids, comorbid hyperlipidemia, asthma. MD anticipates > 2 MN LOS for ongoing med nec for eval and TX pf above.
[2017-10-24] MEDS: ESTRADIOL 0.5 MG TAB PO SCH (21:18)
[2017-10-24] MEDS: CALCIUM CARB W/VIT D 500 MG TAB PO SCH (21:18)
[2017-10-24] MEDS: ATORVASTATIN CALCIUM 40 MG TAB PO SCH (21:18)
[2017-10-24] MEDS: GLUCOSAMINE SULF 500 MG CAP PO SCH (21:19)
[2017-10-24] MEDS: PROGESTERONE,MICR 100 MG CAP PO SCH (21:19)
[2017-10-25 04:34] LABS: PLATELET COUNT 166 10^3/uL (150-400)
--- NOTE | 2017-10-25 08:17 | CPEKG ---
Heart Rate: 82 RR Interval: 732 P-R Interval: 160 QRSD Interval: 138 QT Interval: 424 QTC Interval: 496 P [place]: 60 QRS [place]: 73 T Wave [place]: 25 EKG Severity - ABNORMAL ECG - EKG Impression: SINUS RHYTHM EKG Impression: RIGHT BUNDLE BRANCH BLOCK Electronically Signed By: Junito Vasquez 25-Oct-2017 10:23:40
[2017-10-25] MEDS: BUDESONIDE/FORMOTEROL 160/4.5 60 PUFFS/MDI IH SCH (08:47)
[2017-10-25 08:51] VITALS: O2SAT 95
[2017-10-25] MEDS: PROGESTERONE,MICR 100 MG CAP PO SCH (08:58)
[2017-10-25] MEDS: ATORVASTATIN CALCIUM 40 MG TAB PO SCH (08:58)
--- NOTE | 2017-10-25 08:58 | PDCARPN ---
Cardiology Progress Note Chief Complaint: No cardiovascular complaints today. Slept well overnight. Assessment/Plan: Assessment: Patient is a 57 y/o female with history of HLP (on statins) and asthma, but no prior history of HTN, DM, or CAD, who presented to [facility] ER with complaints of progressive chest discomfort noted with activity (exercise, specifically). No dynamic ECG changes were appreciated, but initial troponin levels were noted to be mildly elevated. Given symptoms and troponin elevation, the patient was taken to the cardiac labor conciliator for diagnostic left heart catheterization. Critical LAD/Diag lesion was noted, and Dr. Quintin Gipson performed PCI. LVEF was noted to preserved. Radial access was converted over to groin with attempts at better support to cannulate the diagonal branch (without success). No cardiovascular complaints voiced today. Minimal wrist discomfort. No groin pain. Troponin levels this morning were noted to be greater than yesterday ( 0.7 ng/mL, up from 0.04 ng/mL pre cath yesterday). Plan: (1) Would like to see troponin trending down given the procedure and location of the stent (2) Maintain therapy on ASA and Effient for CAD/PCI history (3) Lipitor should continue as at present. Would consider reassessment of LFTs /FLP in 5 weeks. LDL needs to be <70 given new history (4) Metoprolol should continue as at present for further suppression of HTN as well as newly noted NSTEMI (5) Out patient arrangements for cardiac rehab recommended Subjective: No cardiovascular complaints. Patient wanting to go home today. Objective: Vital Signs (8 Hrs) Temp Pulse Resp BP Pulse Ox 10/25/17 08:49 78 16 95 10/25/17 04:00 37.2 C 79 16 98/51 L 96 Intake/Output (24 Hrs) 10/24/17 10/25/17 10/26/17 05:59 05:59 05:59 Intake Total 350 Balance 350 Intake: Oral (ml) 350 Other: Number of Voids Toilet 3 Result Diagrams: 10/25/17 03:34 10/25/17 03:34 Cardiac Labs: Cardiac Lab Results (72 Hrs) 10/25/17 03:34 Troponin I 0.736 H Telemetry: normal sinus rhythm Echocardiogram: LVEF was 68% with normal valve morphology - Physical Exam Constitutional: WDWN, healthy appearing, no apparent distress Eyes: PERRL, EOMI Ears, Nose, Mouth, Throat: moist mucous membranes Cardiovascular: regular rate and rhythm, no murmurs, no rubs, No jugular vein distention Peripheral Pulses: 2+: dorsalis-pedis (R), dorsalis-pedis (L) Respiratory: clear to auscultate bilat, no crackles, no wheezes Gastrointestinal: normoactive bowel sounds Skin: no rashes, no edema, induration (to the right wrist) Musculoskeletal: no muscular tenderness, no joint effusions Neurologic: CN II-XII grossly intact Psychiatric: cooperative, interactive, following commands ICD10 Worksheet Patient Problems: Problems Problem Status Onset Chest pain Acute Elevated troponin Acute
[2017-10-25] MEDS: CALCIUM CARB W/VIT D 500 MG TAB PO SCH (08:59)
[2017-10-25] MEDS: GLUCOSAMINE SULF 500 MG CAP PO SCH (08:59)
[2017-10-25] MEDS: ESTRADIOL 0.5 MG TAB PO SCH (08:59)
[2017-10-25] MEDS ORDERED: PRASUGREL HCL 10 MG TAB PO SCH (09:00)
[2017-10-25] MEDS ORDERED: METOPROLOL SUCCINATE XR 25 MG TAB PO SCH (09:00)
[2017-10-25] MEDS ORDERED: ASPIRIN EC 325 MG TAB PO SCH (09:00)
[2017-10-25 09:41] VITALS: PULSE 81
[2017-10-25 09:43] VITALS: TEMP 98.4
[2017-10-25 11:39] VITALS: BP 103/57
--- NOTE | 2017-10-25 13:42 | ASDISCHSUM ---
Discharge Information Plan Status:Home with No Needs Medically Cleared to Leave:10/24/2017 Discharge Date:10/25/2017 12:18 PM CM D/C Disposition:Home, Routine, Self-Care ADT D/C Disposition:Home, Routine, Self-Care Projected Discharge Date:10/25/2017 12:18 PM Transportation at D/C:Family Discharge Delay Reason: Follow-Up Date:10/25/2017 12:18 PM Discharge Slot: Final Diagnosis: Placement Information Patient Contact Information Contact Name:LIANA Relationship: Address:[address] [place] Phone: [facility]/Zip Code:[place] [address] Email: Financial Information Financial Class:HMO and PPO Plans Primary Plan Desc:[employer] Primary Plan Number:[id number] Secondary Plan Desc: Secondary Plan Number: Assessment Information [facility] CM Progress Note CM Note CM Note Notes: 10/24/2017 Case Management Note Reviewed chart, spoke w/RN. There are no case management d/c needs identified d/t pt age, marital status, activity levels prior to admission and employment status. There are no PT or OT evals ordered. There is a consult for cardiac rehab. Case Management d/c poc: anticipating independent with follow up as directed. Case Management available if needs change. Date Signed: 10/24/2017 02:14 PM Electronically Signed By:Renetta Hess RN Intervention Information Intervention Type:*Incorrect Registration Date of Service:10/23/2017 07:47 PM Patient Type:Observation Staff Member:ALEK Carvalho Shelly Hours:0.25 Discipline: Severity:1 (0-1 Hours) Comment:Registered inpatient, written admit or costa observation status.
--- NOTE | 2017-10-25 22:15 | GDS ---
[f rep st] DISCHARGE SUMMARY CONSULTANTS: Dr. Brennan Gipson, Cardiology. DISCHARGE DIAGNOSIS: Coronary artery disease, status post PCI with LAD stent placement. HISTORY OF PRESENT ILLNESS: The patient is a pleasant 57-year-old female, with a past medical history of hyperlipidemia, who presented to the [facility] Emergency Room on 10/23/2017 after experiencing exertional chest discomfort and shortness of breath. Her initial ECG showed normal sinus rhythm with a right bundle branch block and left posterior fascicular block. Her initial troponin was mildly elevated at 0.047. Cardiology was consulted on her case, and she subsequently underwent a cardiac catheterization on 2017. An LAD stenosis was identified, and she subsequently had a single drug- coated stent in the stenosis of the LAD. After her PCI, she did not have any recurrent symptoms and no immediate complications were noted. Cardiology gave clearance to discharge her from the hospital today, with the plan for short- term follow up. She will continue on aspirin, Effient. Her pravastatin will be replaced with atorvastatin, and metoprolol has been added as well. HOSPITAL COURSE BY PROBLEM: 1. Coronary artery disease. The patient had symptomatic coronary artery disease and was subsequently found to have a stenosis at the LAD that was subsequently stented. No immediate complications, and she seems to be doing reasonably well. She will continue with aspirin, Effient, atorvastatin, and metoprolol. 2. Hyperlipidemia. Her LDL cholesterol was 130 with current pravastatin therapy. The pravastatin has been placed on hold, and the patient has been started on atorvastatin for additional lipid lowering. 3. Asthma, stable during this hospitalization. She uses Symbicort as an outpatient. 4. Deep venous thrombosis prophylaxis. The patient was on Lovenox during this hospitalization. 5. Disposition. She appears stable for discharge home today. EXAM: VITAL SIGNS: On day of discharge, temperature 36.9, blood pressure is 112/66, heart rate 63, respirations 16, saturating 95% on room air. GENERAL: Patient appears comfortable. She is sitting in a chair at the bedside with her . No acute distress. HEART: Regular. No murmurs. Lungs: Clear to auscultation. Normal respiratory effort. ABDOMEN: Nondistended. : No Mena catheter in place. EXTREMITIES: No edema noted. NOTABLE STUDIES: 1. White blood cell count is 7, hemoglobin 11, platelets 166. Sodium 141, potassium 4.2, chloride 109, bicarb 23, BUN is 16, creatinine of 0.7, glucose at 97. LDL cholesterol 120. Initial troponin 0.047. 2. Chest x-ray negative. 3. Echocardiogram: Normal size left ventricle with normal global systolic function. Estimated ejection fraction 68%. No regional wall motion abnormalities. Diastolic dysfunction is present. Normal valvular structure and function. DISCHARGE MEDICATIONS: 1. Aspirin 325 mg daily. 2. Effient 10 mg daily. 3. Atorvastatin 40 mg daily. 4. Metoprolol succinate ER 25 mg daily. 5. Symbicort 160/4.5 two puffs inhalation twice a day. 6. Progesterone 100 mg daily. 7. Estradiol 0.5 mg daily. DISCHARGE INSTRUCTIONS: Followup visit with Dr. Gipson is recommended in 7- 10 days. I also recommend a visit with her primary provider, Dr. Rodriguez, in 1-2 weeks' time as well. 35 minutes of time dedicated to discharge efforts. /[id number]/MODL MTDD
== END 2017-10-25 12:18 | disposition home or self-care (01) | DRG 247 ==
LOC: INTOOBSV 18:47 → F2W 19:40 → OBSVTOIN 10-24 18:43
PROVIDERS: ADMIT Internal Medicine; ATTEND Internal Medicine
PROC: B2151ZZ Fluoroscopy of Left Heart using Low Osmolar Contrast (ICD-10-PCS; 2017-10-24)
PROC: 02703ZZ Dilation of Coronary Artery, One Artery, Percutaneous Approach (ICD-10-PCS; 2017-10-24)
PROC: 4A023N7 Measurement of Cardiac Sampling and Pressure, Left Heart, Percutaneous Approach (ICD-10-PCS; 2017-10-24)
PROC: B2111ZZ Fluoroscopy of Multiple Coronary Arteries using Low Osmolar Contrast (ICD-10-PCS; 2017-10-24)
PROC: 0270346 Dilation of Coronary Artery, One Artery, Bifurcation, with Drug-eluting Intraluminal Device, Percutaneous Approach (ICD-10-PCS; principal; 2017-10-24 13:20)
DX: I25.119 Atherosclerotic heart disease of native coronary artery with unspecified angina pectoris (principal); J45.909 Unspecified asthma, uncomplicated; Z82.49 Family history of ischemic heart disease and other diseases of the circulatory system; E78.5 Hyperlipidemia, unspecified
CPT/HCPCS: C1725; C1760; C1769; C1874; C1887; C9600; G0378; J1644; J1650; J2250; J2405; J2550; J3010; Q9967